=== PATIENT | female | born 1990 | race Caucasian/White ===

== ENCOUNTER 2020-05-26 17:02 | Emergency (ER) | payer BC ==
[~2020-05-26] VITALS: Ht 170.2 cm; Wt 144.7 kg
[2020-05-26 17:26] VITALS: BP 131/85; Ht 170.2 cm; Wt 144.7 kg
== END 2020-05-26 19:08 | disposition home or self-care (01) ==
LOC: ED 17:02
DX: S60.012A Contusion of left thumb without damage to nail, initial encounter (principal); S63.611A Unspecified sprain of left index finger, initial encounter; W23.0XXA Caught, crushed, jammed, or pinched between moving objects, initial encounter; Y93.89 Activity, other specified; Y92.89 Other specified places as the place of occurrence of the external cause; Y99.8 Other external cause status